=== PATIENT | female | born 1950 | race Caucasian/White ===

== ENCOUNTER 2018-11-18 12:44 | Emergency (ER) | payer OTHER ==
[~2018-11-18] VITALS: Ht 160 cm; Wt 70.3 kg
--- OUTSIDE RECORDS SUMMARY | 2018-11-18 12:46 | XMS REPORT | Clinical Summary ---
Author Author [facility] Address Unknown Phone Unavailable Care Team Providers Care Aircraft Designer Name Role Phone LeidyNathan roque DO PCP Allergies No Known Allergies Medications End Date Status Medication Sig Dispensed Refills Start Date Active lisinopril Take 20 mg by 0 (PRINIVIL,ZESTRIL) 20 mg mouth daily. tablet Active amLODIPine (NORVASC) 2.5 Take 2.5 mg 0 mg tablet by mouth daily. Active vortioxetine (TRINTELLIX) Take by 0 10 mg tablet mouth. Active traZODone (DESYREL) 100 Take 100 mg 0 MG tablet by mouth nightly. Active Problems No known active problems Encounters Care Team Description Date Type Specialty Everette Chawla 03/17/2018 Anesthesia Gastroenterology Event Simone Mesa MD COLONOSCOPY 03/17/2018 Surgery Gastroenterology Simone Mesa MD 03/17/2018 Hospital Gastroenterology Encounter Nathan Forbes DO Right foot pain 12/23/2017 Hospital Radiology Encounter Nathan Forbes DO Right foot pain (Primary Dx) 12/23/2017 Transcribe Access Orders after 11/17/2017 Social History Date Tobacco Use Types Packs/Day Years Used Never Smoker Smokeless Tobacco: Never Used Alcohol Use Drinks/Week oz/Week Comments No Sex Assigned at Date Recorded Not on file Industry Job Start Date Occupation Not on file Not on file Not on file Travel End Travel History Travel Start No recent travel history available. Last Filed Vital Signs Time Taken Vital Sign Reading 03/17/2018 7:38 AM CDT Blood Pressure 112/56 03/17/2018 7:38 AM CDT Pulse 80 03/17/2018 7:28 AM CDT Temperature 36.7 C (98 F) 03/17/2018 7:38 AM CDT Respiratory Rate 16 03/17/2018 7:38 AM CDT Oxygen Saturation 95% - Inhaled Oxygen - Concentration - Weight - 03/17/2018 6:35 AM CDT Height 160 cm (5' 3") - Body Mass Index - Plan of Treatment Health Maintenance Due Date Last Done Comments COLON CANCER SCREENING 2001 SHINGLES VACCINES (#1) 2001 65+ PNEUMOCOCCAL VACCINE 2016 (1 of 2 - PCV13) PNEUMOCOCCAL 2016 POLYSACCHARIDE VACCINE AGE 65 AND OVER INFLUENZA VACCINE 04/20/2018 BREAST CANCER SCREENING 08/17/2019 08/17/2017, 06/01/2016, 04/11/2015, Additional history exists Procedures Comments Procedure Name Priority Date/Time Associated Diagnosis COLONOSCOPY 03/17/2018 FAMILY HISTORY OF COLON 7:00 AM CDT CANCER 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 Findings: The bones appear well-mineralized and intact. Arthritic changes involving the distal and proximal interphalangeal joints with narrowing of the MTP joints especially of the great toe. Intertarsal articulations are maintained. No acute findings are visualized. IMPRESSION: Arthritic changes as noted. [id number] Procedure Note Hm Interface, Radiology Results Incoming - 12/23/2017 2:55 PM CDT EXAMINATION: XR FOOT 3 VW RIGHT CLINICAL HISTORY: M79.671 Pain in right foot, foot pain COMPARISON: None. Findings: The bones appear well-mineralized and intact. Arthritic changes involving the distal and proximal interphalangeal joints with narrowing of the MTP joints especially of the great toe. Intertarsal articulations are maintained. No acute findings are visualized. IMPRESSION: Arthritic changes as noted. [id number] Performing Organization Address City/State/Zipcode Phone Number [facility] [address] [place] [id number] after 11/17/2017 Insurance Payer Benefit Subscriber ID Type Phone Address Plan / Group [facility] xxxxxxxxxxx Advance Directives Patient has advance care planning documents on file. For more information, vini dugan contact: Darion Hearn [address] [place] [address]
[2018-11-18 15:46] VITALS: BP 140/81
== END 2018-11-18 15:59 | disposition home or self-care (01) ==
LOC: ER 12:44
DX: I10 Essential (primary) hypertension (principal); F41.9 Anxiety disorder, unspecified; M54.2 Cervicalgia; G89.29 Other chronic pain
CPT/HCPCS: 93005; 99283

== ENCOUNTER 2019-03-11 20:02 | Emergency (ER) | payer OTHER ==
[~2019-03-11] VITALS: Ht 160 cm; Wt 70.3 kg
--- OUTSIDE RECORDS SUMMARY | 2019-03-11 20:05 | XMS REPORT | Clinical Summary ---
Author Author [facility] [facility] Address Unknown Phone Unavailable Care Team Providers Care Soil Conservationist Name Role Phone Leidy Nathan DO PCP Allergies No Known Allergies Medications [...] Encounters Care Team Description Date Type Specialty Nathan Forbes DO Screening breast examination 11/29/2018 Hospital Radiology Encounter Nathan Forbes DO Screening breast examination (Primary Dx) 11/28/2018 Transcribe Access Orders Everette Chawla 03/17/2018 Anesthesia Gastroenterology Event Simone Meas MD COLONOSCOPY 03/17/2018 Surgery Gastroenterology Simone Mesa MD 03/17/2018 Hospital Gastroenterology Encounter after 03/10/2018 Social History Date Tobacco Use Types Packs/Day [...] Health Maintenance Due Date Last Done Comments COLONOSCOPY SCREENING 2001 SHINGLES VACCINES (#1) 2001 65+ PNEUMOCOCCAL VACCINE 2016 (1 of 2 - PCV13) INFLUENZA VACCINE 04/20/2019 BREAST CANCER SCREENING 11/29/2020 11/29/2018, 08/17/2017, 06/01/2016, Additional history exists Procedures Comments Procedure Name Priority Date/Time Associated Diagnosis MAMMO BREAST SCREEN Routine 11/29/2018 Screening breast TOMOSYNTHESIS BILATERAL 12:59 PM CDT examination COLONOSCOPY 03/17/2018 FAMILY HISTORY OF COLON 7:00 AM CDT CANCER 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 CLINICAL HISTORY: 68-year-old asymptomatic female with family history notable for mother diagnosed with breast cancer at age 55. The patient presents for routine screening. FINDINGS: There are scattered fibroglandular densities. There are no new suspicious masses, calcifications or distortions in either breast.There has been no significant interval change compared to prior. IMPRESSION: No specific mammographic features of breast malignancy. BI-RADS 1:NEGATIVE Recommend comparison with physical examination. In the absence of new clinical findings, the patient should return for bilateral screening mammography in 1 year. This facility is accredited by the [employer] for Mammography. A negative x-ray report should not delay biopsy if a dominant or clinically suspicious mass is present.Not all cancers are identified by x-ray. [id number] Performing Organization Address City/State/Zipcode Phone Number [facility] [address] [place] [address] after 03/10/2018 Insurance Type Payer Benefit Subscriber ID Effective Phone Address Plan / Dates Group [facility] xxxxxxxxxxx 2016-P resent Advance Directives Patient has advance care planning documents on file. For more information, vini dugan contact: Darion Hearn [address] [place] [address]
--- NOTE | 2019-03-11 21:12 | Diagnostic Imaging Report ---
FOOT RIGHT COMPLETE - 3 views HISTORY: Pain COMPARISON: None available. FINDINGS: Bones: No acute displaced fracture. Osseous alignment is within normal limits. Joints: No malalignment. Soft tissues: The soft tissues appear unremarkable. IMPRESSION: No acute radiographic abnormality. Signed by: Dr. Rudy Wylie MD on 03/11/2019 9:08 PM
--- NOTE | 2019-03-11 21:13 | Diagnostic Imaging Report ---
ANKLE 3 + VIEWS RIGHT - 3 views HISTORY: Pain COMPARISON: None available. FINDINGS: Bones: No acute displaced fracture. Osseous alignment is within normal limits. Joints: The joint spaces are well-maintained. Soft tissues: The soft tissues appear unremarkable. IMPRESSION: No acute radiographic abnormality. Signed by: Dr. Rudy Wylie MD on 03/11/2019 9:09 PM
[2019-03-11 21:38] VITALS: BP 135/72
== END 2019-03-11 21:40 | disposition home or self-care (01) ==
LOC: ER 20:02
DX: S93.491A Sprain of other ligament of right ankle, initial encounter (principal); S93.611A Sprain of tarsal ligament of right foot, initial encounter; X58.XXXA Exposure to other specified factors, initial encounter; Y93.9 Activity, unspecified
CPT/HCPCS: 99283